=== PATIENT | female | born 1950 | race Hispanic/Latino ===

== ENCOUNTER 2016-11-20 20:36 | Inpatient (IN) | payer OTHER ==
[2016-11-20 20:43] VITALS: BMI 24.9
[2016-11-20] MEDS ORDERED: Potassium Chloride 20 mEq ER Tab PO ONE (23:29)
[2016-11-21] MEDS: Levalbuterol 1.25 MG/3 ML Inhal Soln UD IH SCH ×4 (00:32→23:47)
--- NOTE | 2016-11-21 01:25 | CP.PCM.HP ---
History of Present Illness - History of Present Illness History of Present Illness: Chief Complaint: Lethargy and inability to ambulate HPI: Pt is a 66 yo female with pmhx of Stage IV Lung Cancer with MEts to the bone. PT also known to have borderline hypertension, hypokalemia, hypomagnesemia, anemia, and pancytopenia. PT has even had a recent blood transfusion prior to transfer from [facility]. PT previously had MAT and a fib which eventually transferred to sinus rhythm prior to transfer along with correction of anemia and electrolyte imbalance. PMHX: Stage IV lung cancer, borderline HTN, hypokalemia, hypomagnesemia, MAT/a fib allergies: NKDA surgical hx: not known at this time Social Hx: Denies any toxic habits 14 ROS- all negative at this time Present on Admission - Present on Admission Any Indicators Present on Admission: No History of DVT/PE: No History of Uncontrolled Diabetes: No Urinary Catheter: No Decubitus Ulcer Present: No Review of Systems - Review of Systems Systems not reviewed;Unavailable: Acuity of Condition, Unstable Vital Signs, Respiratory Distress, Dementia, Altered Mental Status, Intoxicated, Uncooperative, Psychotic, Intubated, Language Barrier, Other - Constitutional Constitutional: Weakness - EENT Eyes: absent: As Per HPI, Blind Spots, Blurred Vision, Change in Vision, Decreased Night Vision, Diplopia, Discharge, Dry Eye, Exophthalmos, Floaters, Irritation, Itchy Eyes, Loss of Peripheral Vision, Pain, Photophobia, Requires Corrective Lenses, Sees Flashes, Spots in Vision, Tunnel Vision, Other Visual Disturbances, Loss of Vision, Other Ears: absent: As Per HPI, Decreased Hearing, Ear Discharge, Ear Pain, Tinnitus, Abnormal Hearing, Disequilibrium, Dizziness, Other Nose/Mouth/Throat: absent: As Per HPI, Epistaxis, Nasal Congestion, Nasal Discharge, Nasal Obstruction, Nasal Trauma, Nose Pain, Post Nasal Drip, Sinus Pain, Sinus Pressure, Bleeding Gums, Change in Voice, Dental Pain, Dry Mouth, Dysphagia, Halitosis, Hoarsness, Lip Swelling, Mouth Lesions, Mouth Pain, Odynophagia, Sore Throat, Throat Swelling, Tongue Swelling, Facial Pain, Neck Pain, Neck Mass, Other - Cardiovascular Cardiovascular: absent: As Per HPI, Acrocyanosis, Chest Pain, Chest Pain at Rest , Chest Pain with Activity, Claudication, Diaphoresis, Dyspnea, Dyspnea on Exertion, Edema, Irregular Heart Rhythm, Pain Radiating to Arm/Neck/Jaw, Leg Edema, Leg Ulcers, Lightheadedness, Orthopnea, Palpitations, Paroxysmal Nocturnal Dyspnea, Pedal Edema, Radiating Pain, Rapid Heart Rate, Slow Heart Rate, Syncope, Other - Respiratory Respiratory: absent: As Per HPI, Cough, Dyspnea, Hemoptysis, Dyspnea on Exertion , Wheezing, Snoring, Stridor, Pain on Inspiration, Chest Congestion, Excessive Mucous Production, Change in Mucous Color, Pain with Coughing, Other - Gastrointestinal Gastrointestinal: absent: As Per HPI, Abdominal Pain, Belching, Bloating, Change in Bowel Habits, Change in Stool Character, Coffee Ground Emesis, Constipation, Cramping, Diarrhea, Dyspepsia, Dysphagia, Early Satiety, Excessive Flatus, Fecal Incontinence, Heartburn, Hematemesis, Hematochezia, Loose Stools, Melena, Nausea, Odynophagia, Temesmus, Vomiting, Other - Genitourinary Genitourinary: absent: As Per HPI, Change in Urinary Stream, Difficulty Urinating, Dysuria, Flank Pain, Hematuria, Pyuria, Nocturia, Urinary Incontinence, Urinary Frequency, Urinary Hesitance, Urinary Urgency, Voiding Freq/Small Amts, Freq UTI, Hx Renal/Bladder Calculi, Hx /Renal Surgery, Bladder Distension, Other - Reproductive: Female Reproductive:Female: absent: As Per HPI, Amenorrhea, Amenorrhea/ Control, Currently Menstual, Cycle <21 Days, Cycle >35 Days, Cycle Variable, Menses 1-7 Days, Menses >/= 8 Days, Menses Variable, Cycle > 4 Weeks Between, No Menses for 6 Months, Heavy Menses, Light Menses, Normal Menses, Spotting Between Cycles , S/P Hysterectomy, Menopausal, Post Menopausal, Premenarche, Abnormal Vaginal Bleeding, Dysmenorrhea, Dyspareunia, Genital Lesions, Genital Pruritis, Pelvic Pain, Prolapse Symptoms, Sexual Dysfunction, Vaginal Discharge, Vaginal Dryness , Vaginal Odor, Vaginal Pruritis, Other - Menstruation Menstruation: absent: As Per HPI, Amenorrhea, Amenorrhea/ Control, Currently Menstual, Cycle <21 Days, Cycle >35 Days, Cycle Variable, Menses 1-7 Days, Menses >/= 8 Days, Menses Variable, Cycle > 4 Weeks Between, No Menses for 6 Months, Heavy Menses, Light Menses, Normal Menses, Spotting Between Cycles , S/P Hysterectomy, Menopausal, Post Menopausal, Premenarche, Abnormal Vaginal Bleeding, Dysmenorrhea, Other - Musculoskeletal Musculoskeletal: absent: As Per HPI, Abnormal Gait, Arthralgias, Atrophy, Back Pain, Deformity, Joint Swelling, Limited Range of Motion, Loss of Height, Muscle Cramps, Muscle Weakness, Myalgias, Neck Pain, Numbness, Radiating Pain into Limb, Stiffness, Tingling, Other - Integumentary Integumentary: absent: As Per HPI, Acne, Alopecia, Bleeding Lesions, Change in Hair, Change in Nails, Change in Pigmentation, Changing Lesions, Dry Skin, Erythema, Furuncle, Hirsutism, Lesions, New Lesions, Non-Healing Lesions, Photosensitivity, Pruritus, Rash, Skin Pain, Skin Ulcer, Sores, Striae, Swelling , Unusual Bruising, Wounds, Jaundice, Other - Neurological Neurological: absent: As Per HPI, Abnormal Gait, Abnormal Hearing, Abnormal Movements, Abnormal Speech, Behavioral Changes, Burning Sensations, Confusion, Convulsions, Disequilibrium, Dizziness, Numbness, Focal Weakness, Frequent Falls , Headaches, Lack of Coordination, Loss of Vision, Memory Loss, Paresthesias, Radicular Pain, Restless Legs, Sensory Deficit, Syncope, Tingling, Tremor, Vertigo, Weakness, Other Visual Disturbances, Other - Psychiatric Psychiatric: absent: As Per HPI, Abnormal Sleep Pattern, Anhedonia, Anxiety, Auditory Hallucinations, Behavioral Changes, Change in Appetite, Change in Libido, Confusion, Depression, Difficulty Concentrating, Hallucinations, Homicidal Ideation, Hopelessness, Irritability, Memory Loss, Mood Swings, Panic Attacks, Paranoia, Suicidal Ideation, Visual Hallucinations, Tactile Hallucinations, Other - Endocrine Endocrine: absent: As Per HPI, Change in Body Appearance, Change in Libido, Cold Intolorance, Deepening of Voice, Excessive Sweating, Fatigue, Flushing, Heat Intolorance, Increase in Ring/Shoe/Hat Size, Palpitations, Polydipsia, Polyphagia, Polyuria, Other - Hematologic/Lymphatic Hematologic: absent: As Per HPI, Easy Bleeding, Easy Bruising, Lymphadenopathy, Other Past Patient History - Infectious Disease Hx of Infectious Diseases: None - Tetanus Immunizations Tetanus Immunization: Unknown - Past Medical History & Family History Past Medical History?: Yes Past Family History: Reviewed and not pertinent - Past Social History Smoking Status: Never Smoked Chewing Tobacco Use: No Cigar Use: No - CARDIAC Hx Cardiac Disorders: Yes Hx Hypertension: Yes - PULMONARY Hx Respiratory Disorders: Yes Hx Pneumonia: Yes Other/Comment: POSITIVE PPD 30 YRS AGO / LUNG MASS - MUSCULOSKELETAL/RHEUMATOLOGICAL Hx Musculoskeletal Disorders: Yes Hx Gout: Yes - SURGICAL HISTORY Hx Surgeries: Yes Hx Hysterectomy: Yes (PARTIAL) - ANESTHESIA Hx Anesthesia: Yes Hx Anesthesia Reactions: No Hx Malignant Hyperthermia: No Meds Allergies/Adverse Reactions: Allergies Allergy/AdvReac Type Severity Reaction Status Date / Time No Known Allergies Allergy Verified 07/21/15 21:43 Physical Exam - Head Exam Head Exam: ATRAUMATIC, NORMAL INSPECTION, NORMOCEPHALIC Additional comments: wearing neck brace - Eye Exam Eye Exam: EOMI, Normal appearance, PERRL Pupil Exam: NORMAL ACCOMODATION - ENT Exam ENT Exam: Mucous Membranes Moist, Normal Exam - Neck Exam Neck exam: Positive for: Normal Inspection - Respiratory Exam Respiratory Exam: Clear to Auscultation Bilateral, NORMAL BREATHING PATTERN - Cardiovascular Exam Cardiovascular Exam: REGULAR RHYTHM - GI/Abdominal Exam GI & Abdominal Exam: Normal Bowel Sounds, Soft - Rectal Exam Rectal Exam: Deferred - Extremities Exam Extremities exam: Positive for: normal inspection - Back Exam Back exam: NORMAL INSPECTION - Neurological Exam Neurological exam: Alert, CN II-XII Intact, Normal Gait, Oriented x3, Reflexes Normal - Psychiatric Exam Psychiatric exam: Normal Affect, Normal Mood - Skin Skin Exam: Dry, Intact Assessment & Plan - Assessment and Plan (Free Text) Assessment: PT is a 66 yo female with transfer from [facility] due to lethargy and the need for physical therapy. PT has h/o anemia, hypokalemia, and low magnesium with a stage IV cancer. Plan: Admit to Physicial therapy 1) lethargy- - physical therapy - electrolyte correction - gentle hydration as pt clinically is mild dehydrated 2) Stage IV cancer with pleural effusion- - will hold iv fluid due to dehydration 3) hypokalemia- K replacement 4) hypomagnesium- will check levels and replace prn 5) MAT/ Afib- currently sinus, will monitor - will continue with metoprolol 6) anemia- will get CBC this AM 7) GI and DVT prophylaxis- scd and pepcid - Date & Time Date: 11/21/16 Time: 01:36
[2016-11-21] MEDS: Acetaminophen-Codeine 300/30 mg Tab PO PRN ×4 (01:30→22:01)
[2016-11-21 07:30] LABS: BASO # 0.1 K/uL (0.0-0.2); BASO % 0.8 % (0.0-2.0); EOS % 0.2 % (0.0-4.0); HEMOGLOBIN 8.4 g/dL (12.0-16.0); LYMPH % 15.2 % (20.0-40.0); MEAN CELL VOLUME 91.1 fl (81.0-99.0); MEAN CORPUSCULAR HEMOGLOBIN 30.8 pg (27.0-31.0); MEAN CORPUSCULAR HGB CONC 33.8 g/dL (33.0-37.0); MEAN PLATELET VOLUME 8.8 fl (7.2-11.7); MONO # 0.9 K/uL (0.0-0.8); MONO % 13.4 % (0.0-10.0); NEUT # 4.7 K/uL (1.8-7.0); NEUT % 70.4 % (50.0-75.0); NRBC % 0.1 % (0.0-0.0); RBC 2.73 Mil/uL (3.80-5.20); RED CELL DISTRIBUTION WIDTH 17.1 % (11.5-14.5); WHITE BLOOD COUNT 6.7 K/uL (4.8-10.8)
[2016-11-21 07:47] LABS: ALB/GLOB RATIO 1.1 (1.0-2.1); ALBUMIN 2.8 g/dL (3.5-5.0); ALT/SGPT 37 U/L (9-52); AST/SGOT 39 U/L (14-36); BLOOD UREA NITROGEN 27 mg/dl (7-17); CALCIUM 12.1 mg/dL (8.4-10.2); GFR AFRICAN-AMERICAN > 60; GFR NON-AFRICAN AMERICAN > 60; HDL CHOLESTEROL 28 MG/DL (30-70); MAGNESIUM 1.6 MG/DL (1.6-2.3)
[2016-11-21 07:58] LABS: LDL CHOLESTEROL 70 mg/dL (0-129)
[2016-11-21] MEDS ORDERED: HYDROCHLOROTHIAZIDE PO SCH (09:00)
[2016-11-21] MEDS ORDERED: [UNRECOGNIZED DRUG - OTHER] PO SCH (09:00)
[2016-11-21] MEDS ORDERED: METOPROLOL SUCCINATE PO SCH (09:00)
[2016-11-21] MEDS: Metoprolol Succinate 25 mg XL Tab PO SCH ×2 (09:31→21:02)
[2016-11-21] MEDS ORDERED: Potassium Chloride 20 mEq ER Tab PO ONE (10:26)
[2016-11-21] MEDS ORDERED: Acetaminophen/Cod NO 4 TAB PO PRN (15:37)
[2016-11-21 19:48] LABS: SQUAMOUS EPITHIAL 7 /hpf (0-5); URINE BACTERIA RARE (<OCC); URINE BILIRUBIN NEGATIVE (NEGATIVE); URINE BLOOD NEGATIVE (NEGATIVE); URINE CLARITY TURBID (Clear); URINE COLOR YELLOW (YELLOW); URINE GLUCOSE (UA) NEG (Normal); URINE LEUKOCYTE ESTERASE SMALL Leu/uL (Negative); URINE NITRATE NEGATIVE (NEGATIVE); URINE PROTEIN NEGATIVE (NEGATIVE); URINE UROBILINOGEN 0.2-1.0 mg/dL (0.2-1.0); WBC CLUMPS FEW /hpf
[2016-11-22] MEDS: Acetaminophen-Codeine 300/30 mg Tab PO PRN ×3 (05:23→17:24)
[2016-11-22] MEDS: Levalbuterol 1.25 MG/3 ML Inhal Soln UD IH SCH ×3 (08:45→23:31)
[2016-11-22] MEDS: Metoprolol Succinate 25 mg XL Tab PO SCH ×2 (09:04→21:59)
--- NOTE | 2016-11-22 09:32 | CP.PCM.PN ---
Subjective - Date & Time of Evaluation Date of Evaluation: 11/22/16 Time of Evaluation: 12:00 - Subjective Subjective: Patient seen and examined bedside. Feeling a little better. Pain is controlled Hemodynamically stable afebrile No acute issues overnight Soft collar in place Denies any CP or SOB Objective - Vital Signs/Intake and Output Vital Signs (last 24 hours): Temp Pulse Resp BP Pulse Ox 97.6 F 89 20 123/66 99 11/22/16 08:27 11/22/16 09:04 11/22/16 08:27 11/22/16 09:04 11/22/16 08:27 - Medications Medications: Current Medications Acetaminophen/Codeine Phosphate (Tylenol/Codeine 300 Mg/30 Mg) 2 tab PO Q6 PRN PRN Reason: Pain, severe (8-10) Last Admin: 11/22/16 05:23 Dose: 2 tab Aspirin (Ecotrin) 81 mg PO DAILY [facility] Last Admin: 11/21/16 09:39 Dose: Not Given Docusate Sodium (Colace) 100 mg PO BID [facility] Last Admin: 11/22/16 09:03 Dose: Not Given Famotidine (Pepcid) 20 mg IVP DAILY [facility] Last Admin: 11/22/16 09:05 Dose: Not Given Levalbuterol HCl (Xopenex) 1.25 mg IH RQ8 [facility] Last Admin: 11/21/16 23:47 Dose: 1.25 mg Lorazepam (Ativan) 0.5 mg PO Q8 PRN PRN Reason: Anxiety Lorazepam (Ativan) 0.5 mg PO HS PRN PRN Reason: Anxiety Metoprolol Succinate (Toprol Xl) 25 mg PO Q12 [facility] Last Admin: 11/22/16 09:04 Dose: 25 mg Nitroglycerin (Nitrostat Sl Tab) 0.4 mg SL Q5MIN PRN PRN Reason: chest pain - Labs Labs: 11/21/16 06:00 11/21/16 06:00 - Constitutional Appears: Non-toxic, No Acute Distress - Head Exam Head Exam: ATRAUMATIC, NORMAL INSPECTION, NORMOCEPHALIC - Eye Exam Eye Exam: EOMI, Normal appearance, PERRL Pupil Exam: NORMAL ACCOMODATION, PERRL - ENT Exam ENT Exam: Mucous Membranes Moist, Normal Exam - Neck Exam Neck Exam: Full ROM, Normal Inspection - Respiratory Exam Respiratory Exam: Clear to Ausculation Bilateral, NORMAL BREATHING PATTERN. absent: Accessory Muscle Use, Prolonged Expiratory Phase, Rales, Rhonchi, Wheezes, Respiratory Distress - Cardiovascular Exam Cardiovascular Exam: REGULAR RHYTHM, RRR, +S1, +S2. absent: JVD - GI/Abdominal Exam GI & Abdominal Exam: Soft, Normal Bowel Sounds. absent: Distended, Guarding, Tenderness, Rebound - Rectal Exam Rectal Exam: Deferred - Extremities Exam Extremities Exam: Full ROM, Normal Capillary Refill, Normal Inspection. absent : Pedal Edema - Back Exam Back Exam: NORMAL INSPECTION - Neurological Exam Neurological Exam: Alert, Awake, CN II-XII Intact, Oriented x3 - Psychiatric Exam Psychiatric exam: Normal Affect - Skin Skin Exam: Dry, Pallor, Warm Assessment and Plan - Assessment and Plan (Free Text) Assessment: PT is a 66 yo female with transfer from [facility] due to lethargy and the need for physical therapy. PT has h/o anemia, hypokalemia, and low magnesium with a stage IV lung cancer. 1. Generalized weakness Continue physical therapy electrolyte correction gentle hydration as pt clinically is mild dehydrated 2. Stage IV lung cancer with pleural effusion and C2 pathological fracture Keep soft collar on during therapy patient following up at [facility] for her lung cancer and has finished radiation therapy. Plan for starting chemotherapy soon. Danyel cath in place Continue pain management 3. Electrolyte derangement with hypokalemia, hypomagnesemia Continue monitoring levels and replacement 4. MAT/ Afib back on currently SR continue with metoprolol 5. Anemia of chronic disease Start Ferrous sulfate PO 6 GI and DVT prophylaxis Patient is ambulatory . Lovenox scd and pepcid
[2016-11-23 07:33] LABS: HEMOGLOBIN 7.5 g/dL (12.0-16.0); MEAN CELL VOLUME 91.2 fl (81.0-99.0); RBC 2.43 Mil/uL (3.80-5.20); RED CELL DISTRIBUTION WIDTH 18.5 % (11.5-14.5); WHITE BLOOD COUNT 6.5 K/uL (4.8-10.8)
[2016-11-23 07:43] LABS: BLOOD UREA NITROGEN 27 mg/dl (7-17); GFR AFRICAN-AMERICAN > 60; GFR NON-AFRICAN AMERICAN 56; MAGNESIUM 1.7 MG/DL (1.6-2.3)
[2016-11-23 07:48] LABS: CALCIUM 13.1 mg/dL (8.4-10.2)
[2016-11-23] MEDS: Levalbuterol 1.25 MG/3 ML Inhal Soln UD IH SCH ×4 (07:48→23:22)
[2016-11-23] MEDS ORDERED: Sodium Chloride 0.9% 500 ML IV ONE (08:13)
[2016-11-23] MEDS: Metoprolol Succinate 25 mg XL Tab PO SCH ×2 (08:15→22:03)
[2016-11-23] MEDS ORDERED: Sodium Chloride 0.9% 1,000 ML IV SCH (08:15)
[2016-11-23] MEDS: Enoxaparin 40 mg Syringe SC SCH (08:35)
[2016-11-23] MEDS ORDERED: Calcitonin 400 Intl Units/2mL Inj IM SCH (09:00)
[2016-11-23] MEDS: Acetaminophen-Codeine 300/30 mg Tab PO PRN ×2 (09:10→18:27)
[2016-11-24] MEDS: Acetaminophen-Codeine 300/30 mg Tab PO PRN ×2 (00:35→20:22)
[2016-11-24] MEDS: Sodium Chloride 0.9% 1,000 ML IV SCH ×3 (00:36→17:33)
[2016-11-24] MEDS: Levalbuterol 1.25 MG/3 ML Inhal Soln UD IH SCH ×3 (07:44→23:45)
[2016-11-24 08:37] LABS: HEMOGLOBIN 8.4 g/dL (12.0-16.0); MEAN CELL VOLUME 91.7 fl (81.0-99.0); MEAN CORPUSCULAR HEMOGLOBIN 31.2 pg (27.0-31.0); MEAN CORPUSCULAR HGB CONC 34.1 g/dL (33.0-37.0); RBC 2.7 Mil/uL (3.80-5.20); RED CELL DISTRIBUTION WIDTH 16.7 % (11.5-14.5); WHITE BLOOD COUNT 6.4 K/uL (4.8-10.8)
[2016-11-24 08:53] LABS: BLOOD UREA NITROGEN 23 mg/dl (7-17); CALCIUM 12.3 mg/dL (8.4-10.2); GFR AFRICAN-AMERICAN > 60; GFR NON-AFRICAN AMERICAN > 60
[2016-11-24] MEDS: Enoxaparin 40 mg Syringe SC SCH (09:37)
[2016-11-24] MEDS: Metoprolol Succinate 25 mg XL Tab PO SCH ×2 (09:38→20:23)
[2016-11-24] MEDS ORDERED: Potassium Chloride 20 mEq ER Tab PO ONE (14:00)
[2016-11-24 21:39] VITALS: RESP 20
[2016-11-25] MEDS: Acetaminophen-Codeine 300/30 mg Tab PO PRN ×2 (04:39→17:57)
[2016-11-25] MEDS: Potassium Chl 20 mEq in NS 1,000 ML IV SCH ×2 (04:59→17:58)
[2016-11-25] MEDS: Levalbuterol 1.25 MG/3 ML Inhal Soln UD IH SCH ×3 (07:39→23:35)
[2016-11-25 08:36] LABS: BLOOD UREA NITROGEN 17 mg/dl (7-17); CALCIUM 12.6 mg/dL (8.4-10.2); GFR AFRICAN-AMERICAN > 60; GFR NON-AFRICAN AMERICAN > 60
[2016-11-25] MEDS: Metoprolol Succinate 25 mg XL Tab PO SCH ×2 (09:19→21:32)
[2016-11-25] MEDS: Enoxaparin 40 mg Syringe SC SCH (09:20)
[2016-11-25] MEDS ORDERED: Potassium Chloride 20 mEq ER Tab PO ONE (10:33)
[2016-11-26] MEDS: Potassium Chl 20 mEq in NS 1,000 ML IV SCH (05:30)
[2016-11-26 07:24] LABS: HEMOGLOBIN 7.4 g/dL (12.0-16.0); MEAN CELL VOLUME 91.4 fl (81.0-99.0); MEAN CORPUSCULAR HEMOGLOBIN 32.3 pg (27.0-31.0); MEAN CORPUSCULAR HGB CONC 35.4 g/dL (33.0-37.0); RBC 2.29 Mil/uL (3.80-5.20); RED CELL DISTRIBUTION WIDTH 18.7 % (11.5-14.5); WHITE BLOOD COUNT 7.2 K/uL (4.8-10.8)
[2016-11-26] MEDS: Levalbuterol 1.25 MG/3 ML Inhal Soln UD IH SCH ×3 (07:31→23:24)
[2016-11-26 07:42] LABS: BLOOD UREA NITROGEN 13 mg/dl (7-17); CALCIUM 12.4 mg/dL (8.4-10.2); GFR AFRICAN-AMERICAN > 60; GFR NON-AFRICAN AMERICAN > 60
[2016-11-26] MEDS: Metoprolol Succinate 25 mg XL Tab PO SCH ×2 (09:25→21:07)
[2016-11-26] MEDS: Acetaminophen-Codeine 300/30 mg Tab PO PRN (09:25)
[2016-11-26] MEDS: Enoxaparin 40 mg Syringe SC SCH (09:41)
[2016-11-26] MEDS: Potassium CL 10 MEQ/50 ML 50 ML IVPB SCH ×4 (10:34→13:52)
[2016-11-26 11:20] LABS: CREATININE, RANDOM URINE 14.7 mg/dL
[2016-11-26 12:35] LABS: URINE BILIRUBIN NEGATIVE (NEGATIVE); URINE BLOOD NEGATIVE (NEGATIVE); URINE CLARITY CLEAR (Clear); URINE COLOR LT. YELLOW (YELLOW); URINE GLUCOSE (UA) NEG (Normal)
[2016-11-26 12:36] LABS: URINE LEUKOCYTE ESTERASE NEG Leu/uL (Negative); URINE NITRATE NEGATIVE (NEGATIVE); URINE PROTEIN NEGATIVE (NEGATIVE); URINE UROBILINOGEN 0.2 mg/dL (0.2-1.0)
[2016-11-26 20:20] VITALS: O2SAT 100
--- NOTE | 2016-11-26 20:38 | CP.PCM.CON ---
History of Present Illness - History of Present Illness History of Present Illness: 66 yo F w/ pmh of htn and stage IV lung CA w/ bone mets diagnosed earlier this year, s/p radiation treatment (not yet on chemo), was admitted with progressive lethargy and inability to ambulate; nephrology service being consulted for severe electrolyte abnormalities; Events leading up to current admission are difficult to decipher as patient, who although is very coherent, gives mixed history; She reports decreased PO intake of late due to loss of taste sensation; she denies any diarrhea or vomiting; denies any difficulty urinating or dysuria; Review of Systems - Constitutional Constitutional: Lethargy - EENT Eyes: absent: Change in Vision Nose/Mouth/Throat: absent: Dysphagia - Cardiovascular Cardiovascular: Palpitations. absent: Chest Pain - Respiratory Respiratory: absent: Dyspnea - Gastrointestinal Gastrointestinal: As Per HPI - Genitourinary Genitourinary: As Per HPI - Musculoskeletal Musculoskeletal: Back Pain - Integumentary Integumentary: absent: Pruritus, Rash - Neurological Neurological: absent: Sensory Deficit - Psychiatric Psychiatric: absent: Depression Past Patient History - Infectious Disease Hx of Infectious Diseases: None - Tetanus Immunizations Tetanus Immunization: Unknown - Past Medical History & Family History Past Medical History?: Yes Past Family History: Reviewed and not pertinent - Past Social History Smoking Status: Never Smoked Chewing Tobacco Use: No Cigar Use: No - CARDIAC Hx Cardiac Disorders: Yes Hx Hypertension: Yes - PULMONARY Hx Respiratory Disorders: Yes Hx Pneumonia: Yes Other/Comment: POSITIVE PPD 30 YRS AGO / LUNG MASS - MUSCULOSKELETAL/RHEUMATOLOGICAL Hx Musculoskeletal Disorders: Yes Hx Gout: Yes - SURGICAL HISTORY Hx Surgeries: Yes Hx Hysterectomy: Yes (PARTIAL) - ANESTHESIA Hx Anesthesia: Yes Hx Anesthesia Reactions: No Hx Malignant Hyperthermia: No Meds Allergies/Adverse Reactions: Allergies Allergy/AdvReac Type Severity Reaction Status Date / Time Iodinated Contrast- Oral and AdvReac Mild tingling Verified 11/21/16 07:42 IV Dye - Medications Medications: Current Medications Acetaminophen/Codeine Phosphate (Tylenol/Codeine 300 Mg/30 Mg) 2 tab PO Q6 PRN PRN Reason: Pain, severe (8-10) Last Admin: 11/26/16 09:25 Dose: 2 tab Aspirin (Ecotrin) 81 mg PO DAILY [facility] Last Admin: 11/26/16 09:21 Dose: Not Given Docusate Sodium (Colace) 100 mg PO BID [facility] Last Admin: 11/26/16 17:32 Dose: Not Given Enoxaparin Sodium (Lovenox) 40 mg SC DAILY [facility] PRN Reason: Protocol Famotidine (Pepcid) 20 mg IVP DAILY [facility] Last Admin: 11/26/16 09:21 Dose: Not Given Ferrous Sulfate (Feosol) 325 mg PO BID [facility] Last Admin: 11/23/16 08:15 Dose: 325 mg Iron Sucrose 100 mg/ Sodium (Chloride) 105 mls @ 105 mls/hr IVPB DAILY [facility] Last Admin: 11/26/16 09:25 Dose: 105 mls/hr Levalbuterol HCl (Xopenex) 1.25 mg IH RQ8 [facility] Last Admin: 11/26/16 15:22 Dose: 1.25 mg Lorazepam (Ativan) 0.5 mg PO Q8 PRN PRN Reason: Anxiety Lorazepam (Ativan) 0.5 mg PO HS PRN PRN Reason: Anxiety Last Admin: 11/25/16 21:35 Dose: 0.5 mg Magnesium Oxide (Mag-Ox) 400 mg PO BID [facility] Metoprolol Succinate (Toprol Xl) 25 mg PO Q12 [facility] Last Admin: 11/26/16 09:25 Dose: 25 mg Nitroglycerin (Nitrostat Sl Tab) 0.4 mg SL Q5MIN PRN PRN Reason: chest pain Physical Exam - Constitutional Appears: Non-toxic, No Acute Distress - Head Exam Head Exam: NORMAL INSPECTION - Eye Exam Eye Exam: Normal appearance. absent: Scleral icterus - ENT Exam ENT Exam: Mucous Membranes Moist - Neck Exam Neck exam: Positive for: Normal Inspection. Negative for: Lymphadenopathy - Respiratory Exam Respiratory Exam: Clear to Auscultation Bilateral, NORMAL BREATHING PATTERN. absent: Rales, Rhonchi, Wheezes, Respiratory Distress - Cardiovascular Exam Cardiovascular Exam: RRR, +S1, +S2 - GI/Abdominal Exam GI & Abdominal Exam: Soft. absent: Distended - Extremities Exam Extremities exam: Positive for: normal capillary refill, pedal pulses present Additional comments: no leg edema; - Back Exam Back exam: paraspinal tenderness - Neurological Exam Neurological exam: Alert, Oriented x3 - Psychiatric Exam Psychiatric exam: Normal Affect, Normal Mood - Skin Skin Exam: Normal Color, Warm Results - Vital Signs Recent Vital Signs: Last Vital Signs Temp 97.9 F 11/26/16 20:19 Pulse 108 H 11/26/16 20:19 Resp 20 11/26/16 20:19 BP 153/81 H 11/26/16 20:19 Pulse Ox 100 11/26/16 20:19 - Labs Result Diagrams: 11/26/16 06:30 11/26/16 06:30 Labs: Laboratory Results - last 24 hr 11/26/16 11/26/16 11/26/16 06:30 06:30 07:28 WBC 7.2 RBC 2.29 L Hgb 7.4 L Hct 20.9 L MCV 91.4 MCH 32.3 H MCHC 35.4 RDW 18.7 H Plt Count 172 Sodium 142 Potassium 2.9 L Chloride 108 H Carbon Dioxide 28 Anion Gap 9 L BUN 13 Creatinine 0.7 Est GFR ( Amer) > 60 Est GFR (Non-Af Amer) > 60 Random Glucose 97 Calcium 12.4 H Phosphorus Magnesium 1.1 L Urine Color Urine Clarity Urine pH Ur Specific [place] Urine Protein Urine Glucose (UA) Urine Ketones Urine Blood Urine Nitrate Urine Bilirubin Urine Urobilinogen Ur Leukocyte Esterase Urine Osmolality Ur Random Creatinine Ur Random Potassium 11/26/16 11/26/16 11/26/16 11:06 11:06 11:06 WBC RBC Hgb Hct MCV MCH MCHC RDW Plt Count Sodium Potassium Chloride Carbon Dioxide Anion Gap BUN Creatinine Est GFR ( Amer) Est GFR (Non-Af Amer) Random Glucose Calcium Phosphorus Magnesium Urine Color Lt. yellow Urine Clarity Clear Urine pH 6.0 Ur Specific Will[place] 1.010 Urine Protein Negative Urine Glucose (UA) Neg Urine Ketones Negative Urine Blood Negative Urine Nitrate Negative Urine Bilirubin Negative Urine Urobilinogen 0.2 Ur Leukocyte Esterase Neg Urine Osmolality 460 Ur Random Creatinine 14.7 Ur Random Potassium 37.3 11/26/16 12:20 WBC RBC Hgb Hct MCV MCH MCHC RDW Plt Count Sodium Potassium Chloride Carbon Dioxide Anion Gap BUN Creatinine Est GFR ( Amer) Est GFR (Non-Af Amer) Random Glucose Calcium Phosphorus 2.7 Magnesium Urine Color Urine Clarity Urine pH Ur Specific [place] Urine Protein Urine Glucose (UA) Urine Ketones Urine Blood Urine Nitrate Urine Bilirubin Urine Urobilinogen Ur Leukocyte Esterase Urine Osmolality Ur Random Creatinine Ur Random Potassium Assessment & Plan (1) Hypokalemia Assessment and Plan: Urine indices suggestive of renal potassium wasting; mechanism is likely due to hypercalcemia as well as ensuing hypomagnesemia; hypokalemia is slightly improved with potassium replenishment but will need to also correct hypomagnesemia and hypercalcemia (see below); Status: Acute (2) Hypomagnesemia Assessment and Plan: Secondary to hypercalcemia as well as decreased PO intake; unable to give IV mag sulfate on current unit; will try to give PO mag oxide and assess for improvement (however, dose of mag ox limited by GI side effects); -Magnesium sulfate 400 mg PO bid Status: Acute (3) Hypercalcemia Assessment and Plan: Likely due to underlying malignancy and causing further electrolyte abnormalities as above; will likely benefit from zoledronic acid but will confer with patient's outpatient oncologist before administering; -check PTH, PTHrP -vit D 25-OH level Status: Acute (4) HTN (hypertension) Assessment and Plan: BP mildly elevated; would aim to keep SBP < 150 for patient with underlying advanced malignancy; currently on metoprolol XL 25 mg bid; continue same; if BP remains elevated, can add amlodipine 5 mg daily; need to ensure adequate pain control; Status: Acute
[2016-11-26] MEDS: Magnesium Oxide 400 mg Tab UD PO SCH (21:06)
[2016-11-27 08:03] LABS: ALBUMIN 2.9 g/dL (3.5-5.0); BLOOD UREA NITROGEN 12 mg/dl (7-17); CALCIUM 12.4 mg/dL (8.4-10.2); GFR AFRICAN-AMERICAN > 60; GFR NON-AFRICAN AMERICAN > 60; MAGNESIUM 1.1 MG/DL (1.6-2.3)
[2016-11-27 08:17] VITALS: BP 160/83; PULSE 104; TEMP 97.3
[2016-11-27] MEDS ORDERED: Enoxaparin 40 mg Syringe SC SCH (09:00)
[2016-11-27] MEDS: Magnesium Oxide 400 mg Tab UD PO SCH (09:32)
[2016-11-27] MEDS: Metoprolol Succinate 25 mg XL Tab PO SCH (09:33)
[2016-11-27] MEDS ORDERED: Potassium Chloride 20 mEq ER Tab PO ONE (10:00)
[2016-11-27] MEDS ORDERED: Potassium CL 10 MEQ/50 ML 50 ML IVPB SCH (10:00)
[2016-11-27 10:31] LABS: BASO % 0.4 % (0.0-2.0); HEMOGLOBIN 7.5 g/dL (12.0-16.0); LYMPH # 1.2 K/uL (1.0-4.3); LYMPH % 12.9 % (20.0-40.0); MEAN CELL VOLUME 92.9 fl (81.0-99.0); MEAN CORPUSCULAR HEMOGLOBIN 31.3 pg (27.0-31.0); MEAN CORPUSCULAR HGB CONC 33.7 g/dL (33.0-37.0); MEAN PLATELET VOLUME 9.1 fl (7.2-11.7); MONO # 1.3 K/uL (0.0-0.8); MONO % 14.3 % (0.0-10.0); NEUT # 6.8 K/uL (1.8-7.0); NEUT % 72.4 % (50.0-75.0); NRBC % 1.3 % (0.0-0.0); RBC 2.41 Mil/uL (3.80-5.20); WHITE BLOOD COUNT 9.4 K/uL (4.8-10.8)
[2016-11-27] MEDS: Levalbuterol 1.25 MG/3 ML Inhal Soln UD IH SCH (11:20)
[2016-11-27] MEDS ORDERED: Metoprolol Succinate 50 mg XL Tab PO SCH (21:00)
--- NOTE | 2016-11-27 22:36 | CP.PCM.DIS ---
Provider - Provider Date of Admission: 11/20/16 21:24 Attending physician: Bahman Thayer MD Consults: Nephrology Dr. Santamaria Time Spent in preparation of Discharge (in minutes): 40 Hospital Course - Lab Results Lab Results: Micro Results 11/21/16 19:20 Urine,Clean Catch Urine Culture - Final Staphylococcus Epidermidis Most Recent Lab Values WBC 9.4 K/uL (4.8-10.8) 11/27/16 06:45 RBC 2.41 Mil/uL (3.80-5.20) L 11/27/16 06:45 Hgb 7.5 g/dL (12.0-16.0) L 11/27/16 06:45 Hct 22.4 % (34.0-47.0) L 11/27/16 06:45 MCV 92.9 fl (81.0-99.0) 11/27/16 06:45 MCH 31.3 pg (27.0-31.0) H 11/27/16 06:45 MCHC 33.7 g/dL (33.0-37.0) 11/27/16 06:45 RDW 19.0 % (11.5-14.5) H 11/27/16 06:45 Plt Count 166 K/uL (130-400) 11/27/16 06:45 MPV 9.1 fl (7.2-11.7) 11/27/16 06:45 Neut % (Auto) 72.4 % (50.0-75.0) 11/27/16 06:45 Lymph % (Auto) 12.9 % (20.0-40.0) L 11/27/16 06:45 [place] % (Auto) 14.3 % (0.0-10.0) H 11/27/16 06:45 Eos % (Auto) 0.0 % (0.0-4.0) 11/27/16 06:45 Baso % (Auto) 0.4 % (0.0-2.0) 11/27/16 06:45 Neut # 6.8 K/uL (1.8-7.0) 11/27/16 06:45 Lymph # 1.2 K/uL (1.0-4.3) 11/27/16 06:45 [place] # 1.3 K/uL (0.0-0.8) H 11/27/16 06:45 Eos # 0.0 K/uL (0.0-0.7) 11/27/16 06:45 Baso # 0.0 K/uL (0.0-0.2) 11/27/16 06:45 Sodium 140 mmol/l (132-148) 11/27/16 06:00 Potassium 2.5 MMOL/L (3.6-5.0) L* 11/27/16 06:00 Chloride 101 mmol/L (98-107) 11/27/16 06:00 Carbon Dioxide 30 mmol/L (22-30) 11/27/16 06:00 Anion Gap 12 (10-20) 11/27/16 06:00 BUN 12 mg/dl (7-17) 11/27/16 06:00 Creatinine 0.7 mg/dL (0.7-1.2) 11/27/16 06:00 Est GFR ( Amer) > 60 11/27/16 06:00 Est GFR (Non-Af Amer) > 60 11/27/16 06:00 Random Glucose 99 mg/dL (65-105) 11/27/16 06:00 Calcium 12.4 mg/dL (8.4-10.2) H 11/27/16 06:00 Phosphorus 2.7 mg/dl (2.5-4.5) 11/26/16 12:20 Magnesium 1.1 MG/DL (1.6-2.3) L 11/27/16 06:00 Total Bilirubin 0.9 mg/dl (0.2-1.3) 11/21/16 06:00 AST 39 U/L (14-36) H 11/21/16 06:00 ALT 37 U/L (9-52) 11/21/16 06:00 Alkaline Phosphatase 202 U/L (38-126) H 11/21/16 06:00 Total Protein 5.4 G/DL (6.3-8.2) L 11/21/16 06:00 Albumin 2.9 g/dL (3.5-5.0) L 11/27/16 06:00 Globulin 2.6 gm/dL (2.2-3.9) 11/21/16 06:00 Albumin/Globulin Ratio 1.1 (1.0-2.1) 11/21/16 06:00 Triglycerides 284 mg/DL (0-149) H 11/21/16 06:00 Cholesterol 159 mg/dL (0-199) 11/21/16 06:00 LDL Cholesterol Direct 70 mg/dL (0-129) 11/21/16 06:00 HDL Cholesterol 28 MG/DL (30-70) L 11/21/16 06:00 25-OH Vitamin D Total < 12.8 NG/ML (30.0-100.0) L 11/26/16 18:32 Free T4 1.83 ng/dL (0.78-2.19) 11/21/16 06:00 TSH 3rd Generation 3.82 mIU/ML (0.46-4.68) 11/21/16 06:00 Urine Color Lt. yellow (YELLOW) 11/26/16 11:06 Urine Clarity Clear (Clear) 11/26/16 11:06 Urine pH 6.0 (5.0-8.0) 11/26/16 11:06 Ur Specific [place] 1.010 (1.003-1.030) 11/26/16 11:06 Urine Protein Negative mg/dL (NEGATIVE) 11/26/16 11:06 Urine Glucose (UA) Neg mg/dL (Normal) 11/26/16 11:06 Urine Ketones Negative mg/dL (NEGATIVE) 11/26/16 11:06 Urine Blood Negative (NEGATIVE) 11/26/16 11:06 Urine Nitrate Negative (NEGATIVE) 11/26/16 11:06 Urine Bilirubin Negative (NEGATIVE) 11/26/16 11:06 Urine Urobilinogen 0.2 mg/dL (0.2-1.0) 11/26/16 11:06 Ur Leukocyte Esterase Neg Yisel/uL (Negative) 11/26/16 11:06 Urine RBC (Auto) 3 /hpf (0-3) 11/21/16 19:20 Urine WBC Clumps (Auto) Few /hpf (NONE) H 11/21/16 19:20 Urine Microscopic WBC 14 /hpf (0-5) H 11/21/16 19:20 Ur Squamous Epith Cells 7 /hpf (0-5) H 11/21/16 19:20 Urine Bacteria Rare (<OCC) 11/21/16 19:20 Urine Yeast (Budding) Few /hpf (NEGATIVE) H 11/21/16 19:20 Urine Osmolality 460 mosm/kg (300-1000) 11/26/16 11:06 Ur Random Creatinine 14.7 mg/dL 11/26/16 11:06 Ur Random Potassium 37.3 mmol/L 11/26/16 11:06 Ur Random Calcium 29.5 mg/dL 11/26/16 11:06 Urine Magnesium 3.1 mg/dL 11/26/16 11:06 Blood Type O POSITIVE 11/23/16 09:00 Blood Type Confirm O POSITIVE 11/23/16 10:35 Antibody Screen Negative 11/23/16 09:00 Crossmatch See Detail 11/23/16 09:00 BBK History Checked No verified bt 11/23/16 09:00 - Hospital Course Hospital Course: PT is a 66 yo female with transfer from [facility] due to lethargy and the need for physical therapy. Patient has h/o anemia, hypokalemia, hypercalcemia and low magnesium with stage IV lung cancer. Patient and daughter requested that patient be discharged to [facility] and she was accepted there by Oncologist Dr. Julien [phone]. I saw patient for the first time on morning of 11/27/16 and patient had low hgb/hct as well as low K. I ordered transfusion of PRBC as well as K. However, I was informed by Nurse Johns that [facility] was requesting that patient be discharged to their emergency room and that patient not be treated prior to discharge. Patient was picked up and discharged to [facility] at 1 PM. Please see Assessment and Plans below for further details of her stay here at [facility]. Currently upon FULL ROS: loss of taste sensation lightheadedness/dizziness that comes and goes weakness NO other complaints upon FULL ROS Exam: HEENT: EOMI, PERRLS, NCA, NO cervical/supraclavicular/submandibular lymphadenopathy, NO pharyngeal erythema/exudate, NO thyromegaly Cardio: Systolic Ejection Murmur heard best at the second intercostal space Resp: CTA B/L, NO R/R/W GI: BSx4, Soft, ND, NO HSM, NT, NO guarding/rebound tenderness Ext: Pulses are strong and equal, Capillary Refill is 2 seconds, NO edema Neuro: CN II through XII are grossly intact 1. Generalized weakness Continue physical therapy electrolyte correction gentle hydration as pt clinically is mild dehydrated 2. Stage IV lung cancer with pleural effusion and C2 pathological fracture Keep soft collar on during therapy Patient following up at [facility] for her lung cancer and has finished radiation therapy. Plan for starting chemotherapy soon. Danyel cath in place Continue pain management 3. Electrolyte derangement with hypokalemia, hypomagnesemia and hypercalcemia ( likely secondary to malignancy) Continue monitoring levels and replacement 4. MAT/ Afib back on currently SR continue with metoprolol which was increased to 50 mg PO Q12H 5. Anemia of chronic disease Ferrous sulfate PO 6 GI and DVT prophylaxis Patient is ambulatory . Lovenox was discontinued secondary to the anemia scd and pepcid Discharge Exam - Head Exam Head Exam: NORMAL INSPECTION Discharge Plan - Follow Up Plan Condition: GOOD Disposition: Trans to Other Acute Care Hosp Instructions: Hypokalemia (DC), Hypokalemia (GEN), Hypertension (DC), Hypertension (GEN)
== END 2016-11-27 14:00 | disposition short-term general hospital (02) | DRG 181 ==
LOC: H.TCU 21:24
PROVIDERS: ADMIT Internal Medicine; ATTEND Internal Medicine
DX: C34.90 Malignant neoplasm of unspecified part of unspecified bronchus or lung (principal); J90 Pleural effusion, not elsewhere classified; D61.818 Other pancytopenia; M84.48XA Pathological fracture, other site, initial encounter for fracture; I48.91 Unspecified atrial fibrillation; E83.42 Hypomagnesemia; E86.0 Dehydration; I10 Essential (primary) hypertension; R53.1 Weakness; D63.8 Anemia in other chronic diseases classified elsewhere; E87.6 Hypokalemia; Z92.3 Personal history of irradiation; M10.9 Gout, unspecified